=== PATIENT | female | born 1970 | race Hispanic/Latino ===

== ENCOUNTER 2019-03-27 11:57 | Observation (INO) | payer BC ==
[2019-03-27 12:27] LABS: #Basophils 0.1 thou/uL (0.0-0.2); #Eosinphils 0.2 thou/uL (0.0-0.7); #Monocytes 0.7 thou/uL (0.11-0.59); #Neutrophils 6.4 thou/uL (1.40-6.50); %Basophils 0.6 % (0.0-1.0); %Eosinophils 2.1 % (0.0-10.0); %Lymphocytes 35.1 % (21.0-51.0); %Monocytes 6.3 % (0.0-10.0); %Neutrophils 55.9 % (42.0-75.0); Hemoglobin 13.5 g/dL (12.0-16.0); Mean Corpuscular HGB CONC 33.8 g/dL (32.0-36.0); Mean Corpuscular Hemoglobin 30.6 pg (27.0-31.0); Mean Corpuscular Volume 90.5 fL (78.0-98.0); Mean Platelet Volume 6.4 fL (7.4-10.4); Platelet Count 319 thou/uL (130-400); RBC Distribution Width 11.1 % (11.5-14.5); Red Blood Cell (RBC) Count 4.43 mill/uL (4.20-5.40); White Blood Cell (WBC) Count 11.5 thou/uL (4.8-10.8)
--- NOTE | 2019-03-27 12:30 | RAD ---
XR Chest 1 View Portable History: Chest pain Comparison: None. Findings: Heart size upper limits of normal. Multiple midline sternotomy wires with fracture of the c raniad most 2 wires. Incomplete evaluation ACDF hardware. No acute osseous abnormality. Impression: Chronic findings. No acute intrathoracic abnormality.
[2019-03-27 12:45] LABS: ALT (SGPT) 24 U/L (8-55); AST (SGOT) 20 U/L (5-34); Albumin 4.1 g/dL (3.5-5.0); Alkaline Phosphatase 83 U/L (40-110); Anion Gap 14 mmol/L (10-20); BUN (Urea Nitrogen) 10 mg/dL (7.0-18.7); Bilirubin, Total 0.4 mg/dL (0.2-1.2); CK (CPK) 261 U/L (29-168); Calc. Creatinine Clearance 0 mL/min (70-130); Calcium 9.3 mg/dL (7.8-10.44); Carbon Dioxide 24 mmol/L (22-29); Chloride 102 mmol/L (98-107); Estimated GFR-MDRD 80; Globulin 2.7 g/dL (2.4-3.5); Glucose 266 mg/dL (70-105); Potassium 4.9 mmol/L (3.5-5.1); Protein, Total 6.8 g/dL (6.0-8.3); Sodium 135 mmol/L (136-145)
[2019-03-27] MEDS ORDERED: Nitroglycerin 2% Ointment 1 INCH/1 GM Packet ONE (13:44)
[2019-03-27] MEDS ORDERED: Acetaminophen 500 MG TAB ONE (13:44)
[2019-03-27] MEDS ORDERED: Acetaminophen 325 MG TAB PO PRN (15:26)
[2019-03-27] MEDS ORDERED: Ondansetron ODT 4 MG TAB PO PRN (15:26)
[2019-03-27] MEDS ORDERED: Acetaminophen 650 MG Suppository PR PRN (15:26)
[2019-03-27] MEDS ORDERED: Ondansetron PF 4 MG/2 ML Vial IVP PRN (15:26)
[2019-03-27] MEDS ORDERED: traMADol HCl 50 MG TAB PO PRN (15:36)
[2019-03-27] MEDS ORDERED: Dextrose 50% Abboject 50 ML SYRINGE SLOW IVP PRN (15:36)
[2019-03-27] MEDS ORDERED: Dextrose 5% in Water 1,000 ML IV PRN (15:36)
[2019-03-27] MEDS ORDERED: HumaLOG 300 UNITS/3 ML VIAL SC PRN ×2 (15:36)
--- NOTE | 2019-03-27 15:50 | PDOC.HHP ---
Hospitalist HPI - History of Present Illness Chest pain and SOB History of Present Illness: Patient states she started feeling unwell over the weekend, overall tired and fatigued. Last night she began to have intermittent chest pain described as pressure/stabbing, a 4/10 in severity and lasted a couple of hours. She woke up this morning feeling better. While at work around 9am she had recurring chest pain, intermittent with relief lasting a few minutes only. States it was on the left side of her chest, with aching in her back between her shoulder blades. She drove home and while driving her pain intensified at 11am approximately. She pulled over and her boss called an ambulance. She reports noting numbness in her right hand as well. Patient states similar symptoms occurred previous [facility], however it is not as intense. She had a CABG x 3 in [place] 1.5 years ago and recently moved to [place]. She has not established care with a superintendent measurement here yet. ED Course: EKG showed normal sinus with HR of 61, no ST changes or T wave abnormalities. Labs notable for WCC of 11.5, Neutrophils 55.9. CK 261, Na+ 135. Glucose 247. Otherwise unremarkable. Initial troponin negative. LFTS normal. CXR showed no acute abnormalities. She received 1 L of IVF and 1000 mg of acetaminophen for pain. Also given nitro-bid. While en route to hospital EMS gave NTG x 3, and 324 mg of ASA. Hospitalist ROS - Review of Systems Constitutional: reports: malaise. denies: fever, chills, sweats, weakness, other Eyes: denies: pain, vision change, conjunctivae inflammation, eyelid inflammation, redness, other ENT: denies: ear pain, ear discharge, nose pain, nose discharge, nose congestion , mouth pain, mouth swelling, throat pain, throat swelling, other Respiratory: denies: cough, dry, shortness of breath, hemoptysis, SOB with excertion, pleuritic pain, sputum, wheezing, other Cardiovascular: reports: chest pain Gastrointestinal: reports: nausea (with dry heaving) Genitourinary: denies: dysuria, frequency, incontinence, hematuria, retention, other Musculoskeletal: reports: shoulder pain (discomfort described as aching between shoulder bladers) Skin: denies: rash, lesions, alma, bruising, other Hospitalist History - Past Medical History Cardiac: reports: CAD, [facility], Hyperlipidemia Endocrine: reports: Diabetes - Past Surgical History Past Surgical History: reports: CABG - Family History Family History: reports: no pertinent history - Social History Smoking Status: Current every day smoker Alcohol: reports: None Drugs: reports: none Living Situation: With Family Activity level: independent ambulation - Exam General Appearance: NAD, awake alert Eye: PERRL, anicteric sclera ENT: normocephalic atraumatic, no oropharyngeal lesions, moist mucosa Neck: supple, symmetric, no lymphadenopathy Heart: RRR, no murmur, no gallops, no rubs Respiratory: CTAB, no wheezes, no rales, no ronchi, normal chest expansion, no tachypnea Gastrointestinal: soft, non-tender, non-distended, normal bowel sounds, no palpable masses, no guarding, no rigidity Extremities: no edema Skin: normal turgor, no lesions, no rashes Neurological: cranial nerve grossly intact Musculoskeletal: normal tone, normal strength Psychiatric: normal affect, normal behavior, A&O x 3 Hospitalist Results - Labs Result Diagrams: 03/27/19 12:17 03/27/19 12:17 Lab results: WBC 11.5 thou/uL (4.8-10.8) H 03/27/19 12:17 Hgb 13.5 g/dL (12.0-16.0) 03/27/19 12:17 Hct 40.1 % (36.0-47.0) 03/27/19 12:17 MCV 90.5 fL (78.0-98.0) 03/27/19 12:17 Plt Count 319 thou/uL (130-400) 03/27/19 12:17 Neutrophils % 55.9 % (42.0-75.0) 03/27/19 12:17 Sodium 135 mmol/L (136-145) L 03/27/19 12:17 Potassium 4.9 mmol/L (3.5-5.1) 03/27/19 12:17 Chloride 102 mmol/L (98-107) 03/27/19 12:17 Carbon Dioxide 24 mmol/L (22-29) 03/27/19 12:17 BUN 10 mg/dL (7.0-18.7) 03/27/19 12:17 Creatinine 0.78 mg/dL (0.6-1.1) 03/27/19 12:17 Glucose 266 mg/dL (70-105) H 03/27/19 12:17 Calcium 9.3 mg/dL (7.8-10.44) 03/27/19 12:17 Total Bilirubin 0.4 mg/dL (0.2-1.2) 03/27/19 12:17 AST 20 U/L (5-34) 03/27/19 12:17 ALT 24 U/L (8-55) 03/27/19 12:17 Alkaline Phosphatase 83 U/L (40-110) 03/27/19 12:17 Creatine Kinase 261 U/L (29-168) H 03/27/19 12:17 Troponin I Less than 0.010 ng/mL (< 0.028) 03/27/19 12:17 Serum Total Protein 6.8 g/dL (6.0-8.3) 03/27/19 12:17 Albumin 4.1 g/dL (3.5-5.0) 03/27/19 12:17 Hospitalist H&P A/P - Problem (1) Chest pain Code(s): R07.9 - CHEST PAIN, UNSPECIFIED Status: Acute (2) CAD (coronary artery disease) Code(s): I25.10 - ATHSCL HEART DISEASE OF [place] CORONARY ARTERY W/O ANG PCTRS Status: Acute (3) Hyperlipidemia Code(s): E78.5 - HYPERLIPIDEMIA, UNSPECIFIED Status: Chronic (4) Diabetes mellitus Code(s): E11.9 - TYPE 2 DIABETES MELLITUS WITHOUT COMPLICATIONS Status: Chronic - Plan Plan: Continue to trend troponins. Consult placed to cardiology. Echo ordered, has been over a year. Monitor BP and resume home meds once verified. Monitor glucose. ISS. GI prophylaxis with famotidine. DVT prophylaxis with mechanical SCDs. She is ambulatory. CODE STATUS: FULL Surrogate decision maker is her Cliff Guerrero. Case discussed with Dr. Caruso who agrees with plan as above.
[2019-03-27 16:15] LABS: Lactic Acid 0.6 mmol/L (0.5-2.2)
[2019-03-27 16:23] LABS: Bilirubin Negative (Negative); Blood, Urine Negative (Negative); Glucose, Urine (Dipstick) 500 mg/dL (Negative); Leukocyte Negative (Negative); Nitrite Negative (Negative); Protein, Urine (Dipstick) Negative (Neg-Trace); Urobilinogen 0.2 mg/dL (Less than 2)
[2019-03-27 16:24] LABS: Bacteria/HPF None Seen HPF (None Seen); Clarity Clear (Clear); RBC/HPF 0-3 HPF (0-3); Squamous Epithelial 0-3 HPF (0-3); WBC/HPF 0-3 HPF (0-3)
[2019-03-27 16:25] LABS: Urine Culture Reflex No No
[2019-03-27 16:25] LABS: Troponin I 0.024 ng/mL (< 0.028)
[2019-03-27 16:35] LABS: Amphetamine Not Detected (NotDetected); Barbiturates Screen Not Detected (NotDetected); Benzodiazepine Screen Not Detected (NotDetected); Cocaine Metabolite Screen Not Detected (NotDetected); Medtox Control Line Valid? VALID (VALID); Medtox Reader # READER 1; Methadone Not Detected (NotDetected); Methamphetamine Not Detected (NotDetected); Opiate Screen Not Detected (NotDetected); Oxycodone Screen Not Detected (NotDetected); Phencyclidine (PCP) Not Detected (NotDetected); THC/Cannabinoid Screen Not Detected (NotDetected); Tricyclic Screen Not Detected (NotDetected)
[2019-03-27 19:14] LABS: Troponin I 0.028 ng/mL (< 0.028)
--- NOTE | 2019-03-27 19:15 | ULT ---
Venous duplex sonogram bilateral lower extremity HISTORY: Bilateral leg pain and edema. FINDINGS: Each common femoral vein and greater saphenous junction, femoral and deep femoral vein, pop liteal and posterior tibial vein were evaluated. There is good color and spectral Doppler flow, compression, and augmentation. IMPRESSION: Normal exam.
[2019-03-27] MEDS: Famotidine/PF 20 mg/2ml Vial SLOW IVP SCH (20:27)
--- NOTE | 2019-03-27 20:39 | CON ---
DATE OF CONSULTATION: 03/27/2019 REASON FOR CONSULTATION: Chest pain. HISTORY OF PRESENT ILLNESS: Ms. Guerrero is a very pleasant 48-year-old white female, who comes to the hospital for chest pain. She comes in after having a week's worth of episodes of chest pain. She states the pain lasts for about 5 seconds to a minute at a time and it comes at random times, goes away on its own. She got concerned as this is the same symptom she had when she had a heart attack about a year and a half ago and underwent 3-vessel bypass. This was all done in [place]. She has moved to this area about a year ago and has not established care with any [employer] yet. She states that what she was having before was not really the chest pain that she is having right now, it was more of a right hand numbness. She states that she developed this right hand numbness yesterday, she got really concerned, decided to come in for evaluation. PAST MEDICAL HISTORY: 1. Coronary artery disease as above. 2. Type 2 diabetes. PAST SURGICAL HISTORY: 1. Cholecystectomy. 2. Tonsillectomy. 3. CABG x3 a year and a half ago in [place]. OUTPATIENT MEDICATIONS: 1. Metoprolol succinate 25 mg a day. 2. Atorvastatin at bedtime. 3. Glipizide 10 mg a day. 4. Citalopram. 5. Aspirin 81 a day. 6. NovoLog. ALLERGIES: ERYTHROMYCIN. SOCIAL HISTORY: Continues to use cigarettes. No alcohol or drugs. FAMILY HISTORY: Noncontributory. REVIEW OF SYSTEMS: A 12-point review of systems was done and is all negative unless stated in history of present illness. PHYSICAL EXAMINATION: VITAL SIGNS: Temperature 97.1, pulse 63, respiratory rate 15, saturation 96% on room air, blood pressure 116/55. GENERAL: Awake, alert, oriented x3. No distress. HEENT: Normocephalic, atraumatic. NECK: Supple. LUNGS: Clear. CARDIOVASCULAR: S1 and S2. No S3 or S4. No murmurs. ABDOMEN: Soft. Positive bowel sounds. EXTREMITIES: No edema. SKIN: Warm and dry. LABORATORY DATA: Laboratory work was reviewed. CBC is unremarkable except for white count of 11, hemoglobin 13, hematocrit 40, and platelet count . Chemistry with a sodium 135, otherwise unremarkable. Glucose was 266. Lactic acid was 0.6. CK was 261. Troponin I was negative x3. BNP was 45. Albumin of 4.1. UA is unremarkable. Toxicology is unremarkable as well. IMAGING STUDIES: Lower extremity venous ultrasound showed no evidence of DVT. ASSESSMENT: 1. Chest pain. Concern for angina. 2. History of coronary artery disease, status post CABG x3, a year and a half ago. PLAN: 1. We will further risk stratify with a stress as well as an echo. 2. She has 3 negative troponins, so this is not an acute coronary syndrome. Her symptoms are certainly atypical, but since they are the same as what she had when she had a bypass. We will further risk stratify. 3. Further recommendations per results of echocardiogram and stress testing. Thank you for letting us to participate in the care of your patient. We will follow. Job ID: [id number]
[2019-03-27] MEDS ORDERED: Atorvastatin Calcium 40 MG TAB PO SCH (21:00)
[2019-03-27] MEDS: HumaLOG 300 UNITS/3 ML VIAL SC SCH (21:46)
[2019-03-28 06:09] LABS: #Basophils 0.1 thou/uL (0.0-0.2); #Eosinphils 0.3 thou/uL (0.0-0.7); #Lymphocytes 2.9 thou/uL (1.20-3.40); #Monocytes 0.9 thou/uL (0.11-0.59); #Neutrophils 8.1 thou/uL (1.40-6.50); %Basophils 0.5 % (0.0-1.0); %Eosinophils 2.2 % (0.0-10.0); %Lymphocytes 23.9 % (21.0-51.0); %Monocytes 7.5 % (0.0-10.0); %Neutrophils 65.9 % (42.0-75.0); Hemoglobin 13.1 g/dL (12.0-16.0); Mean Corpuscular HGB CONC 34.3 g/dL (32.0-36.0); Mean Corpuscular Volume 90.3 fL (78.0-98.0); Mean Platelet Volume 6.6 fL (7.4-10.4); Platelet Count 275 thou/uL (130-400); RBC Distribution Width 11.2 % (11.5-14.5); Red Blood Cell (RBC) Count 4.24 mill/uL (4.20-5.40); White Blood Cell (WBC) Count 12.2 thou/uL (4.8-10.8)
[2019-03-28 06:31] LABS: Anion Gap 9 mmol/L (10-20); BUN (Urea Nitrogen) 10 mg/dL (7.0-18.7); Calc. Creatinine Clearance 129 mL/min (70-130); Calcium 8.5 mg/dL (7.8-10.44); Carbon Dioxide 25 mmol/L (22-29); Chloride 104 mmol/L (98-107); Estimated GFR-MDRD 84; Glucose 253 mg/dL (70-105); Potassium 4.4 mmol/L (3.5-5.1); Sodium 134 mmol/L (136-145)
[2019-03-28] MEDS ORDERED: Citalopram 20 MG TAB PO SCH (09:00)
--- NOTE | 2019-03-28 10:35 | NM ---
Exam: Stress only nuclear medicine cardiac SPECT with EF and wall motion HISTORY: Chest pain Adenosine sestamibi study is performed. Patient was injected with 33 mCi technetium 99m sestamibi intravenously for stress only images. Short axis, vertical long axis, and horizontal long axis demonstrates no scan evidence for infarct or ischemia. LHR 0.38 EDV 116 mL Ejection fraction 70% Normal wall motion. IMPRESSION: No scan evidence for infarct or ischemia.
[2019-03-28] MEDS: Famotidine/PF 20 mg/2ml Vial SLOW IVP SCH (10:46)
[2019-03-28] MEDS: HumaLOG 300 UNITS/3 ML VIAL SC SCH (10:47)
[2019-03-28] MEDS ORDERED: ADENOSINE 60 MG/20 ML VIAL ONE (13:13)
[2019-03-28 16:20] VITALS: BP 137/63; TEMP 98.9
[2019-03-28] MEDS ORDERED: FLU VACC QS2019-20(6MOS UP)/PF 60 MCG/0.5 ML SYRINGE IM ONE (17:15)
--- NOTE | 2019-03-28 17:45 | PDOC.CPN ---
- Subjective Date: 03/28/19 Time: 17:43 Interval history: She is doing well. No more chest pains. - Review of Systems General: denies: fever/chills, weight/appetite/sleep changes, night sweats, fatigue Respiratory: denies: cough, congestion, shortness of breath, exercise intolerance Cardiovascular: denies: chest pain, palpitation, edema, paroxysmal nocturnal dyspnea, orthopnea Gastrointestinal: denies: nausea, vomiting, diarrhea, constipation, abd pain, GI bleeding Musculoskeletal: denies: pain, tenderness, stiffness, swelling, arthritis/ arthralgias Neurological: denies: numbness, syncope, seizure, weakness - Objective Allergies/Adverse Reactions: Allergies Allergy/AdvReac Type Severity Reaction Status Date / Time erythromycin base Allergy Verified 03/27/19 16:54 Visit Medications: Current Medications Acetaminophen (Tylenol) 650 mg PO Q4H PRN PRN Reason: Headache/Fever/Mild Pain (1-3) Last Admin: 03/28/19 14:15 Dose: 650 mg Acetaminophen (Tylenol) 650 mg TN Q4H PRN PRN Reason: Headache/Fever/Mild Pain (1-3) Atorvastatin Calcium (Lipitor) 80 mg PO HS [facility] Last Admin: 03/27/19 20:27 Dose: 80 mg Citalopram Hydrobromide (Celexa) 40 mg PO DAILY [facility] Last Admin: 03/28/19 10:46 Dose: 40 mg Dextrose/Water (Dextrose 50%) 25 gm SLOW IVP PRN PRN PRN Reason: Hypoglycemia Famotidine (Pepcid) 20 mg SLOW IVP Q12HR [facility] Last Admin: 03/28/19 10:46 Dose: 20 mg Glucagon (Glucagon) 1 mg IM PRN PRN PRN Reason: Hypoglycemia Dextrose/Water (D5w) 1,000 mls @ 0 mls/hr IV .Q0M PRN PRN Reason: Hypoglycemia Insulin Human Lispro (Humalog) 0 units SC .MILD SLIDING SCALE PRN PRN Reason: Mild Correctional Scale Last Admin: 03/27/19 17:50 Dose: 3 unit Insulin Human Lispro (Humalog) 0 units SC .BEDTIME SLIDING SC PRN PRN Reason: Bedtime Correctional Scale Last Admin: 03/27/19 21:45 Dose: 3 unit Insulin Human Lispro (Humalog) 15 units SC BID [facility] Last Admin: 03/28/19 10:47 Dose: 15 unit Metoprolol Succinate (Toprol Xl) 25 mg PO DAILY [facility] Last Admin: 03/28/19 10:47 Dose: Not Given Ondansetron HCl (Zofran Odt) 4 mg PO Q6H PRN PRN Reason: Nausea/Vomiting Ondansetron HCl (Zofran) 4 mg IVP Q6H PRN PRN Reason: Nausea/Vomiting Sodium Chloride (Flush - Normal Saline) 10 ml IVF Q12HR PRN PRN Reason: Saline Flush Last Admin: 03/27/19 20:28 Dose: 10 ml Sodium Chloride (Flush - Normal Saline) 10 ml IVF PRN PRN PRN Reason: Saline Flush Tramadol HCl (Ultram) 50 mg PO Q4H PRN PRN Reason: Pain Last Admin: 03/27/19 17:12 Dose: 50 mg Vital Signs & Weight: Vital Signs Temp Pulse Resp BP Pulse Ox 03/28/19 15:51 98.9 F 61 16 137/63 98 03/28/19 12:00 99.3 F 55 L 14 122/58 L 96 03/28/19 07:39 98.2 F 55 L 16 137/65 97 Weight 189 lb 15.204 oz - Physical Exam General: alert & oriented x3, no apparent distress HEENT: mucus membranes moist, normocephaly Neck: supple neck, midline trachea Cardiac: regular rate and rhythm, no murmur Lungs: clear to auscultation Neuro: grossly intact Abdomen: active bowel sounds, soft, non-tender Extremities: no cyanosis, no clubbing, no edema Skin: clear Musculoskeletal: no pain - Labs Result Diagrams: 03/28/19 05:33 03/28/19 05:33 Troponin/CKMB Troponin I 0.028 ng/mL (< 0.028) 03/27/19 18:42 - Telemetry Sinus rhythms and dysrhythmias: sinus rhythm - Assessment/Plan Assessment/Plan: 1. Chest pain 2. CAD, s/p CABG 1.5 yrs ago. PLAN: - Normal stress test and normal echo. - May discharge home today non same medications. - Follow up in the office in 2 months.
--- NOTE | 2019-03-29 12:38 | DIS ---
DATE OF ADMISSION: 03/27/2019 DATE OF DISCHARGE: 03/28/2019 DISCHARGE DIAGNOSES: 1. Chest pain. 2. Coronary artery disease. 3. Hyperlipidemia. 4. Diabetes mellitus. HISTORY OF PRESENT ILLNESS: This patient is a 48-year-old female, who presented to the emergency department reporting a pressure stabbing type pain at 4/10, in the chest area, was aching in her back, between her shoulder blades. She had had a history of a CABG a year and half prior with 3 vessels in [place] and had not established with a paper twister tender in this area yet. Her initial workup was notable for white count of 11.5. Chest x-ray with no abnormalities. EKG with heart rate of 61 with no significant changes. The patient received 3 doses of nitroglycerin and aspirin en route. Her troponins were initially negative. HOSPITAL COURSE: The patient was admitted to the observation for chest pain, to rule out myocardial injury. She remained on telemetry. She underwent an echocardiogram, which revealed an EF of 60% to 65% with grade 1 diastolic dysfunction, mild concentric LVH. She had a nuclear medicine stress test, which showed no evidence of infarct or ischemia. Ejection fraction was 70%. With that, the patient was felt to be stable for discharge to home to have outpatient followup. PHYSICAL EXAMINATION: VITAL SIGNS: On the day of discharge, temperature is 98.9, pulse 61, respirations 16, O2 saturation 98% on room air, and BP 137/63. GENERAL: She is awake and alert. HEART: Regular rate and rhythm. LUNGS: Clear bilaterally. ABDOMEN: Benign. EXTREMITIES: No cyanosis, clubbing, or edema. DISPOSITION: She is discharged to home. DIET: She will be on a heart healthy diet. ACTIVITIES: Her activity level is as tolerated. MEDICATIONS: She will continue with her usual home medications including; 1. Celexa. 2. Metoprolol. 3. Atorvastatin. 4. Insulin. 5. Glimepiride. FOLLOWUP: She will follow up with Dr. Hernandes in 2 months and she is to follow up with Dr. Maryjane Guadalupe in the next available appointment. She can return to the hospital should she have any problems prior to that time. Job ID: [id number]
== END 2019-03-28 19:00 | disposition home or self-care (01) ==
LOC: ERS 11:57 → 2SW 13:55
PROVIDERS: ADMIT Internal Medicine; ATTEND Internal Medicine
DX: R07.89 Other chest pain (principal); I25.10 Atherosclerotic heart disease of native coronary artery without angina pectoris; E78.5 Hyperlipidemia, unspecified; E11.9 Type 2 diabetes mellitus without complications; I25.2 Old myocardial infarction; F17.210 Nicotine dependence, cigarettes, uncomplicated; Z79.4 Long term (current) use of insulin; Z79.82 Long term (current) use of aspirin; Z79.899 Other long term (current) drug therapy; Z88.1 Allergy status to other antibiotic agents; Z95.1 Presence of aortocoronary bypass graft
CPT/HCPCS: 36415; 36416; 71045; 78452; 80048; 80053; 80306; 81001; 82550; 83605; 83880; 84145; 84484; 85025; 90471; 90686; 93005; 93017; 93306; 93970; 94760; 96360; 96361; 96374; 96376; A9500; G0008; G0378; J0153; S0028